=== PATIENT | male | born 1980 | race Caucasian/White ===

== ENCOUNTER 2018-03-18 16:31 | Inpatient (IN) | payer OTHER ==
[~2018-03-18] VITALS: Ht 177.8 cm; Wt 89.0 kg
[2018-03-18 17:28] LABS: ABSOLUTE BASOPHIL COUNT 0 /CUMM (0.0-0.2); ABSOLUTE EOSINOPHIL COUNT 0.1 /CUMM (0.0-0.7); ABSOLUTE GRANULOCYTE CT 2.8 /CUMM (1.4-6.5); ABSOLUTE LYMPH COUNT 0.9 /CUMM (1.2-3.4); ABSOLUTE MONOCYTE COUNT 0.4 /CUMM (0.10-0.60); BASOPHIL % 0.8 % (0.0-2.0); EOSINOPHIL % 1.6 % (0-5); GRANULOCYTE % 67.1 % (42.2-75.2); HEMATOCRIT 41.3 % (42-52); MEAN CORPUSCULAR HGB 29.7 PG (27.0-31.0); MEAN CORPUSCULAR HGB CONC 34.2 G/DL (33.0-37.0); MEAN CORPUSCULAR VOLUME 86.8 FL (80.0-94.0); MEAN PLATELET VOLUME 8.8 FL (7.4-10.4); PLATELET COUNT 175 /CUMM (130-400); RBC DISTRIBUTION WIDTH 14.2 % (11.5-14.5); RED BLOOD CELL CT 4.75 /CUMM (4.70-6.10); WHITE BLOOD CELL COUNT 4.2 /CUMM (4.8-10.8)
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
[2018-03-18] MEDS ORDERED: SEROQUEL100 M1 PO (20:40)
[2018-03-18] MEDS ORDERED: EFFEXOR XR37.5 M1 PO (20:41)
[2018-03-18] MEDS ORDERED: BUSPIRONE HCL5 M1 PO (20:42)
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
[2018-03-19 07:45] VITALS: BP 139/91
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
[2018-03-19 20:06] VITALS: BP 152/91
[2018-03-20 07:42] VITALS: BP 155/90
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
--- NOTE | 2018-03-20 15:56 | SOCIAL WORKER PROG NOTE PSYCH ---
Social Work Progress Note Progress Note Became aware by staff today that Joe's girlfriend Romina had multiple complaints about his care here and that a meeting was scheduled to address those concerns at 2pm today. Met with Gonzalo to ask him what was going on as I was not aware of any concerns he had about his care the day prior. He never shared anything with me. He stated that there was concerns over interactions that happened in the ED with Romina, amongst other issues surrounding getting her phone number and clothes. I told him that I attempted to call her yesterday, but was getting a busy signal and thought I would try again today or approach him to see if it was the correct phone number. He said that the wrong number was listed and he has the correct one now. He shared that he feels anxious about being here and that he is hoping he can discharge today or soon. I told him that we will discuss things at the family meeting and that he is welcome to sign a 3 day paper to terminate voluntary status. He said he will see what the outcome of the meeting entails. Meeting held at 2pm with Romina Sánchez, Paula Msue (patient advocate), Dr. Olmstead, and [employer] student Philomena Hylton. Romina shared multiple concerns about communication, as she felt she was not contacted properly about his admission. She also stated she was turned away from ED staff, because she was told that Gonzalo didn't want to see her. Gonzalo stated he never knew she was there to see him. There were also issues brought up about him getting clothes and her phone number. She frustrated and upset over various system issues. She feels Gnozalo needs help with his mood and regulating emotions. Describes him as flying off the handle at times. She agreed to lock up the knives and any extra pills at home. Gonzalo stated he feels safe to go home today. Dr. Olmstead shared that he is recommending he stay overnight for continued monitoring and time to set up aftercare. Told him to sign a 3 day paper to terminate voluntary status. Gonzalo and Romina spoke with the patient advocate privately after the meeting. Gonzalo then signed the 3 day paper. Girlfriend wanted to witness it was done and then they asked for a copy, which was given. Scheduled a [facility] intake for 03/21 at 1:15pm.
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
[2018-03-20 19:52] VITALS: BP 148/84
[2018-03-21 07:50] VITALS: BP 156/83
[2018-03-21] MEDS ORDERED: EFFEXOR XR75 M1 PO (10:14)
[2018-03-21] MEDS ORDERED: TRAZODONE HCL50 M1 PO (10:14)
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
--- NOTE | 2018-03-21 13:53 | CP SOUTH PROGRESS NOTE PSYCH ---
Psych (Inpt) Progress Note Progress Note Include the following elements, when applicable: Involvement in the active treatment of the patient with behavioral observations of the patient and the patient's response to the treatment. Review of the ongoing treatment process in the context of the treatment plan. Indication of how multi-disciplinary staff members are carrying out the treatment plan. Plans for future interventions and recommendations for revision of the treatment plan. Liaison with other physicians/providers. Progress Note: Case and treatment plan discussed in team meeting. Staff reports that the patient is denying SI. Set as a goal doing something kind for someone else. Patient seen at 10:02 a.m. Reports he submitted a 3-day paper yesterday. Reports things are going well and that he had a good night's sleep. "I feel pretty good." Has no complaints. Affect is calm and euthymic. Mood is good. Sad maybe 1/10. Anxiety junaid 2-310. Denies feeling hopeless, helpless, worthless or guilty. Denies active and passive suicidal ideation. Denies thoughts of engaging in self-harm. Denies HI, AH, VH and PI. Appetite: good. Energy: good, reports walking because he feels a bit fidgety. Tolerating medications well, without complaint. Feels ready and safe for discharge. IMPRESSION: Condition improved. Okay for discharge today to IOP intake then to return home.
--- NOTE | 2018-03-21 14:54 | SOCIAL WORKER PROG NOTE PSYCH ---
Social Work Progress Note Progress Note Called girlfrienines Vanegas this morning and shared Joe's discharge time and appt. at [facility]. Joe and I talked this morning. He reported that he had a good night. Reports no issues of concern today. He feels less anxious knowing he is leaving today. I asked what his thoughts were about the meeting yesterday ? He said that his girlfriend gets very worked up about things more so than he does and he is fine with everything today. He said it's in the past and he has put it behind him. He was a little embarrassed about some of the things his girlfriend said. Asked if there is an issue emotionally when he goes home how he would handle things? He said he feels like the time here has benefited and he doesn't feel as emotionally charged as he had. He asked if he would be getting numbers of people to call if there was an issue? I told him he will get the [facility] number and the suicide hotline and crisis number. Talked about dealing with issues of loneliness (ie: girlfriend working and being away from kids). He said he plans to try and keep busy during those times with planning things to do. He also plans to ask his girlfriend to keep the marijuana away from him and he is considering attending AA. Plans to call the nutrition specialist of the AA meeting who was here on the unit. He said he would also like to try and connect with his kids more regularly by phone or Face Time them. Attended group today, until his 1:15pm intake at [facility].
--- NOTE | 2018-03-21 15:57 | SOCIAL WORKER PROG NOTE PSYCH ---
Social Work Progress Note Faxed Referral(s) Referred To: [facility] Transition of Care Documents sent: Health Summary Faxed to: [facility] Fax #: [phone] Faxed by: Paige Bruno Date faxed: 03/21/18 Time Faxed: [phone]
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
== END 2018-03-21 13:15 | DRG 885 ==
LOC: ERH 16:31 → ERHI 20:53 → CP SOUTH 20:53 → ENTRNSPT 21:20 → EDTRNSPTSTS 21:26 → EDTRNSPT 21:26 → CMPTRNSPT 21:36 → CP SOUTH 21:37
PROVIDERS: Physician Assistant; Psychiatry & Neurology Psychiatry
DX: F32.3 Major depressive disorder, single episode, severe with psychotic features (principal); F12.10 Cannabis abuse, uncomplicated; E78.5 Hyperlipidemia, unspecified; X78.1XXA Intentional self-harm by knife, initial encounter
CPT/HCPCS: 36415; 80307; 93005; 93010; G0480; J0515; J1630; Q2036